=== PATIENT | female | born 1980 | race Caucasian/White ===

== ENCOUNTER 2018-12-06 11:38 | Outpatient (REF) | payer BC, SELFPAY ==
[2018-12-06 13:07] LABS: Abs Immature Grans 0.01 k/cumm (0.0-0.09); Absolute Basophil Count 0.01 k/cumm (0.0-0.2); Absolute Eosinophil Count 0.07 k/cumm (0.0-0.7); Absolute Lymphocyte Count 1.62 k/cumm (1.2-3.4); Absolute Monocyte Count 0.35 k/cumm (0.11-0.7); Absolute Neutrophil Count 2.22 k/cumm (1.2-6.7); Basophils % 0.2; Eosinophils % 1.6; HCT 39.4 % (36.0-46.0); HGB 13.8 g/dL (12.0-15.5); Immature Grans % 0.2; Lymphocytes % 37.9; Mean Corpuscular Hemoglobin 35.7 pg (27.0-33.0); Mean Corpuscular Volume 101.8 fL (80-95); Mean Platelet Volume 11.3 fL (8.0-11.0); Monocytes % 8.2; Neutrophils % 51.9; Platelet Count 254 x1000/uL (130-400); RBC 3.87 m/cumm (4.00-5.20); RBC Distribution Width 11.5 % (11.7-14.6); White Blood Cell Count 4.28 k/cumm (4.4-10.8)
[2018-12-06 13:39] LABS: Anion Gap 9.5 mmol/L (3-11); BUN 7 mg/dL (7-18); CO2 27.5 mmol/L (21.0-32.0); CREATININE 0.78 mg/dL (0.55-1.02); Calcium 8.9 mg/dL (8.5-10.1); Chloride 101 mmol/L (98-107); Glucose 100 mg/dL (70-100); Magnesium 2.2 mg/dL (1.8-2.4); Sodium 138 mmol/L (136-145); TSH (W/Ref FT4) 1.43 uIU/mL (0.358-3.74)
[2018-12-06 13:43] LABS: Iron 88 ug/dL (50-175); Total Iron Binding Capacity 330 ug/dL (250-450); Transferrin Sat 27 % (15-50)
== END 2018-12-06 11:58 ==
LOC: NCHCN 11:38
PROVIDERS: Visit Provider Nurse Practitioner Family
DX: I10 Essential (primary) hypertension (principal); R51 Headache; R11.0 Nausea; F41.8 Other specified anxiety disorders; F17.210 Nicotine dependence, cigarettes, uncomplicated; J30.9 Allergic rhinitis, unspecified
CPT/HCPCS: 80048; 83540; 83550; 83735; 84443; 85025

== ENCOUNTER 2023-05-26 20:54 | Outpatient (REF) | payer BC, SELFPAY ==
[2023-05-26 14:42] LABS: Calculated LDL 153 mg/dL (<100); Cholesterol 263 mg/dL (<200); HDL Cholesterol 92 mg/dL (40-60); Triglyceride 93 mg/dL (<150)
== END 2023-05-26 20:55 | disposition home or self-care (01) ==
LOC: NCHCN 20:54
PROVIDERS: Visit Provider Nurse Practitioner Family
DX: I10 Essential (primary) hypertension (principal)
CPT/HCPCS: 80061

== ENCOUNTER 2023-09-25 15:07 | Outpatient (REF) | payer BC, SELFPAY ==
--- NOTE | 2023-09-25 14:00 | PAPFT_PTH ---
PATIENT: Cinthya Rodriguez LOC: [facility]#:[id number] AGE/SX: 43/F ROOM: RE09/25/[address]: Aneta Suárez : 1980 BED: DIS: 09/25/2023 SPEC #: [id number] RECD: 09/28/23 12:52 STATUS: KARMA REQ #: [id number] VARGHESE: 09/25/23 14:[address]: Aneta Suárez DEPT: [facility] Cytology RECD BY: Aislinn Patel ENTERED: 09/28/23 12:52 SP TYPE: PAPFT KINDRA DR: Unknown,Unknown Tissues: 1 - CX/ENDOCX FOR PAP SMEARS Procedures: PAP THIN PREP/[facility] Screening HPV DNA PROBE Comments: [id number]
== END 2023-09-25 15:08 | disposition home or self-care (01) ==
LOC: NCHCN 15:07
PROVIDERS: Visit Provider Nurse Practitioner Family
DX: Z00.00 Encounter for general adult medical examination without abnormal findings (principal); Z12.4 Encounter for screening for malignant neoplasm of cervix; Z01.419 Encounter for gynecological examination (general) (routine) without abnormal findings
CPT/HCPCS: 88142; 87624

== ENCOUNTER 2024-04-05 22:40 | Outpatient (REF) | payer BC, SELFPAY ==
[2024-04-05 21:44] LABS: Bilirubin Negative (Negative); Blood Negative (Negative); Clarity Clear (Clear); Glucose Negative (Negative); Ketones Negative (Negative); Leukocyte Esterase Negative (Negative); Nitrite Negative (Negative); Specific Gravity 1.015 (1.005-1.025); Urobilinogen 0.2 mg/dL (Up to 0.2)
[2024-04-05 22:16] LABS: COMMENT (LAB VIEW ONLY) 16.14 mg/dL; Microalb ug/mg Crea 31.6 ug/mg Cr
== END 2024-04-05 22:41 | disposition home or self-care (01) ==
LOC: NCHCN 22:40
PROVIDERS: Visit Provider Nurse Practitioner Family
DX: I10 Essential (primary) hypertension (principal)
CPT/HCPCS: 81003; 82043; 82570